=== PATIENT | male | born 1960 | race African-American/Black ===

== ENCOUNTER → 2016-09-12 | Outpatient (CLI) | payer MEDICARE, OTHER ==
[2016-02-18 13:30] VITALS: BP 161/81
[2016-09-12 09:09] LABS: CHOLESTEROL/HDL RATIO 2.2
== END | disposition home or self-care (01) ==
LOC: LAB 08:33
PROVIDERS: ATTEND Psychiatry & Neurology Psychiatry
DX: Z79.899 Other long term (current) drug therapy (principal)
CPT/HCPCS: 36415; 80061; 82947

== ENCOUNTER 2017-02-27 09:06 | Emergency (ER) | payer MEDICARE, OTHER ==
[~2017-02-27] VITALS: Ht 185.4 cm; Wt 81.6 kg
[2017-02-27] MEDS ORDERED: SMZ/TMP 800/160MG TABLET. PO ONE (10:30)
[2017-02-27] MEDS ORDERED: MUPIROCIN 2 % TOPICAL CREAM 15GM TUBE. TP STA (10:30)
[2017-02-27] MEDS ORDERED: LIDOCAINE 1% PF 2 ML VIAL. INJ ONE (10:30)
[2017-02-27] MEDS ORDERED: cefTRIAXone IM 1 GM VIAL IM ONE (10:30)
[2017-02-27] MEDS ORDERED: DIPHTH,PERTUSS(ACELL),TET TOX 0.5 ML DISP.SYRIN. VAX IM ONE (10:30)
[2017-02-27 11:10] VITALS: BP 162/79
--- NOTE | 2017-02-27 11:37 | PHYS DOC ---
Past Medical History Past Medical History: Schizophrenia Past Surgical History: No Surgical History Alcohol Use: Heavy Additional Information: 3-4 beers daily Drug Use: None Adult General Chief Complaint Chief Complaint: ABSCESS HPI HPI Patient is a 56 year old male with history of schizophrenia who presents with abscesses on his buttocks for 1 month. Patient states some of them of opened up and drained. Patient denies any fever. Review of Systems Review of Systems Constitutional: Denies fever or chills [] Eyes: Denies change in visual acuity, redness, or eye pain [] HENT: Denies nasal congestion or sore throat [] Musculoskeletal: Denies back pain or joint pain [] Integument: abscesses on his buttocks for 1 month Neurologic: Denies headache, focal weakness or sensory changes [] Endocrine: Denies polyuria or polydipsia [] Current Medications Current Medications Current Medications Medications (Trade) Dose Ordered Sig/Bernie Start Time Stop Time Status Last Admin Dose Admin Ceftriaxone Sodium (Rocephin Im) 1 gm 1X ONCE 02/27/17 10:30 02/27/17 10:35 DC 02/27/17 10:54 1 GM Diphtheria/ Tetanus/Acell Pertussis (Boostrix) 0.5 ml ONCE ONCE 02/27/17 10:30 02/27/17 10:35 DC 02/27/17 11:03 0.5 ML Lidocaine HCl (Xylocaine-Mpf 1% Vial) 2 ml 1X ONCE 02/27/17 10:30 02/27/17 10:35 DC 02/27/17 10:55 2 ML Mupirocin (Bactroban) 1 mann 1X STAT 02/27/17 10:30 02/27/17 10:35 DC 02/27/17 11:07 1 MANN Trimethoprim/ Sulfamethoxazole (Bactrim Ds) 1 tab 1X ONCE 02/27/17 10:30 02/27/17 10:35 DC 02/27/17 11:08 1 TAB Allergies Allergies Allergies Coded Allergies Type Severity Reaction Last Updated Verified No Known Allergies Allergy Unknown 02/18/16 Yes Physical Exam Physical Exam Constitutional: Well developed, well nourished, no acute distress, non-toxic appearance. [] HENT: Normocephalic, atraumatic, bilateral external ears normal, oropharynx moist, no oral exudates, nose normal. [] Skin: left buttock with two open abscesses with no drainage. Both abscess have mild cellulitis and are warm to touch and very TTP. Back: No tenderness, no CVA tenderness. [] Extremities: No tenderness, no cyanosis, no clubbing, ROM intact, no edema. [] Neurologic: Alert and oriented X 3, normal motor function, normal sensory function, no focal deficits noted. [] Psychologic: Affect normal, judgement normal, mood normal. [] Current Patient Data Vital Signs Vital Signs Date Time Temp Pulse Resp B/P (MAP) Pulse Ox O2 Delivery O2 Flow Rate FiO2 02/27/17 11:10 84 16 162/79 (106) 98 Room Air 02/27/17 09:22 98.1 98.1 EKG EKG [] Radiology/Procedures Radiology/Procedures [] Course & Med Decision Making Course & Med Decision Making Pertinent Labs and Imaging studies reviewed. (See chart for details) Patient is in the ED with abscesses on his left buttocks for 1 month that are open and draining. Patient was given Rocephin injection, first dose of Bactrim and discharged with Bactrim for 10 days. Patient was also given Bactroban cream in the ED. Prescription for his antibiotics was called into his local pharmacy. Patient is to follow-up with his own PCP in 1-2 weeks. Provided return precautions and discharged in stable condition. Dragon Disclaimer Dragon Disclaimer This electronic medical record was generated, in whole or in part, using a voice recognition dictation system. Departure Departure Impression: Primary Impression: Abscess of cellulitis of buttock Disposition: 01 HOME, SELF-CARE Condition: STABLE Referrals: ANDREW AMADOR MD (PCP) Follow-up with the primary care doctor in 1-2 weeks Patient Instructions: Abscess, Cellulitis Additional Instructions: You were discharged home with antibiotics for the abscess on your buttocks. Take the antibiotics as prescribed ensure you complete to the oral antibiotics. Use the Bactroban cream twice a day on her buttocks. Keep the affected area clean and dry. JHON ALEXIS APRN Feb 27, 2017 11:37
== END 2017-02-27 11:40 | disposition home or self-care (01) ==
LOC: ER 09:06
DX: L02.31 Cutaneous abscess of buttock (principal); L03.317 Cellulitis of buttock; F20.9 Schizophrenia, unspecified; F10.10 Alcohol abuse, uncomplicated; Y90.9 Presence of alcohol in blood, level not specified
CPT/HCPCS: 90471; 90715; 96372; 99284; J0696

== ENCOUNTER → 2017-12-02 | Day surgery (SDC) | payer MEDICARE, OTHER ==
[~2017-12-02] MED LIST: DEXAMETHASONE SOD PHOS 20 MG/5 ML VIAL.; HYDROmorphone 2 MG/ML VIAL IV; IV RINGERS,LACTATED 1000ML 1,000 ML IV; KETOROLAC 30 MG/ML INJ FOR OR. INJ; LIDOCAINE 1% PF 2 ML VIAL. ID; MIDAZOLAM HCL/PF 2 MG/2 ML VIAL.; MORPHINE SULFATE 4 MG/ML DISP.SYRIN. IV; ONDANSETRON PF 4 MG/2 ML VIAL.; ONDANSETRON PF 4 MG/2 ML VIAL. IV; PROCHLORPERAZINE 10 MG/2 ML VIAL. IV; PROPOFOL 20 ML IV; SEVOFLURANE 31 TO 60 MINUTES. IH; SUCCINYLCHOLINE 200 MG/10 ML VIAL.; ceFAZolin 2GM PREMIX 2 GM/50 ML BAG IV; ePHEDrine PF IN SALINE 50 MG/5 ML DISP.SYRIN IV; fentaNYL PF VIAL 100 MCG/2 ML VIAL; fentaNYL PF VIAL 100 MCG/2 ML VIAL IV
[2017-12-02] MEDS: BUPIVACAINE-EPI 0.25%-1:200000 50 ML VIAL. (10:12)
[2017-12-02] MEDS: HYDROcodone/APAP 5/325MG 1 TAB TABLET PO (13:01)
== END | disposition home or self-care (01) ==
LOC: SURG 09:00
DX: L05.91 Pilonidal cyst without abscess (principal); F17.210 Nicotine dependence, cigarettes, uncomplicated; Z79.899 Other long term (current) drug therapy; F20.9 Schizophrenia, unspecified; F41.9 Anxiety disorder, unspecified; F32.9 Major depressive disorder, single episode, unspecified; Z72.89 Other problems related to lifestyle
CPT/HCPCS: 11771; 88304; J0330; J0690; J1100; J1885; J2250; J2405; J2704; J3010

== ENCOUNTER → 2018-12-28 | Outpatient (CLI) | payer MEDICARE, OTHER ==
[2017-12-02 11:35] VITALS: BP 138/77
[~2018-12-28] MED LIST changes: -DEXAMETHASONE SOD PHOS 20 MG/5 ML VIAL.; +HYDR-3164 PO; -HYDROmorphone 2 MG/ML VIAL IV; -IV RINGERS,LACTATED 1000ML 1,000 ML IV; -KETOROLAC 30 MG/ML INJ FOR OR. INJ; -LIDOCAINE 1% PF 2 ML VIAL. ID; -MIDAZOLAM HCL/PF 2 MG/2 ML VIAL.; -MORPHINE SULFATE 4 MG/ML DISP.SYRIN. IV; -ONDANSETRON PF 4 MG/2 ML VIAL.; -ONDANSETRON PF 4 MG/2 ML VIAL. IV; -PROCHLORPERAZINE 10 MG/2 ML VIAL. IV; -PROPOFOL 20 ML IV; +RISP2TAB3 PO; -SEVOFLURANE 31 TO 60 MINUTES. IH; -SUCCINYLCHOLINE 200 MG/10 ML VIAL.; -ceFAZolin 2GM PREMIX 2 GM/50 ML BAG IV; -ePHEDrine PF IN SALINE 50 MG/5 ML DISP.SYRIN IV; -fentaNYL PF VIAL 100 MCG/2 ML VIAL; -fentaNYL PF VIAL 100 MCG/2 ML VIAL IV
[2018-12-28 14:34] LABS: BASO % 1 % (0-3); EOS # 0.1 x10^3/uL (0.0-0.7); EOS % 2 % (0-3); HEMATOCRIT 48.3 % (39.0-53.0); HEMOGLOBIN 16.5 g/dL (13.0-17.5); LYMPH # 1.1 x10^3/uL (1.0-4.8); LYMPH % 29 % (24-48); MEAN CORPUSCULAR HEMOGLOBIN 35 pg (25-35); MEAN CORPUSCULAR HGB CONC 34 g/dL (31-37); MEAN CORPUSCULAR VOLUME 104 fL (79-100); MONO # 0.5 x10^3/uL (0.0-1.1); MONO % 12 % (0-9); NEUT # 2.1 x10^3uL (1.8-7.7); NEUT % 56 % (31-73); PLATELET COUNT 112 x10^3/uL (140-400); RED BLOOD COUNT 4.65 x10^6/uL (4.30-5.70); RED CELL DISTRIBUTION WIDTH 12.7 % (11.5-14.5); WHITE BLOOD COUNT 3.9 x10^3/uL (4.0-11.0)
[2018-12-28 14:53] LABS: CHOLESTEROL/HDL RATIO 2.4
[2018-12-30 04:14] LABS: HEMOGLOBIN A1C 5.1 % (4.8-5.6)
== END | disposition home or self-care (01) ==
LOC: LAB 13:44
PROVIDERS: ATTEND Psychiatry & Neurology Psychiatry
DX: Z79.899 Other long term (current) drug therapy (principal)
CPT/HCPCS: 36415; 80061; 83036; 85025

== ENCOUNTER 2019-06-06 12:04 | Emergency (ER) | payer MEDICARE, OTHER ==
[~2019-06-06] VITALS: Ht 185.4 cm; Wt 81.6 kg
[2019-06-06 13:03] VITALS: BP 125/80
[2019-06-06] MEDS ORDERED: PRED50TA PO (13:22)
[2019-06-06] MEDS ORDERED: HYDR25TA PO (13:22)
[2019-06-06] MEDS ORDERED: PERM60CR12 TP (13:22)
--- NOTE | 2019-06-06 13:22 | PHYS DOC ---
Past Medical History Past Medical History: Schizophrenia Past Surgical History: Other Additional Past Surgical Histo: I&D of buttocks Alcohol Use: None Drug Use: None Adult General Chief Complaint Chief Complaint: SKIN RASH/ABSCESS HPI HPI Patient is a 59 year old [f__sex] who presents with [] Review of Systems Review of Systems Constitutional: Denies fever or chills [] Eyes: Denies change in visual acuity, redness, or eye pain [] HENT: Denies nasal congestion or sore throat [] Respiratory: Denies cough or shortness of breath [] Cardiovascular: No additional information not addressed in HPI [] GI: Denies abdominal pain, nausea, vomiting, bloody stools or diarrhea [] : Denies dysuria or hematuria [] Musculoskeletal: Denies back pain or joint pain [] Integument: Denies rash or skin lesions [] Neurologic: Denies headache, focal weakness or sensory changes [] Endocrine: Denies polyuria or polydipsia [] All other systems were reviewed and found to be within normal limits, except as documented in this note. Allergies Allergies Allergies Coded Allergies Type Severity Reaction Last Updated Verified No Known Allergies Allergy Unknown 12/02/17 Yes Physical Exam Physical Exam Constitutional: Well developed, well nourished, no acute distress, non-toxic appearance. [] HENT: Normocephalic, atraumatic, bilateral external ears normal, oropharynx moist, no oral exudates, nose normal. [] Eyes: PERRLA, EOMI, conjunctiva normal, no discharge. [] Neck: Normal range of motion, no tenderness, supple, no stridor. [] Cardiovascular:Heart rate regular rhythm, no murmur [] Lungs & Thorax: Bilateral breath sounds clear to auscultation [] Abdomen: Bowel sounds normal, soft, no tenderness, no masses, no pulsatile masses. [] Skin: Warm, dry, no erythema, no rash. [] Back: No tenderness, no CVA tenderness. [] Extremities: No tenderness, no cyanosis, no clubbing, ROM intact, no edema. [] Neurologic: Alert and oriented X 3, normal motor function, normal sensory function, no focal deficits noted. [] Psychologic: Affect normal, judgement normal, mood normal. [] Current Patient Data Vital Signs Vital Signs Date Time Temp Pulse Resp B/P (MAP) Pulse Ox O2 Delivery O2 Flow Rate FiO2 06/06/19 13:03 98.3 70 16 125/80 (95) 98 Room Air 98.3 EKG EKG [] Radiology/Procedures Radiology/Procedures [] Course & Med Decision Making Course & Med Decision Making Pertinent Labs and Imaging studies reviewed. (See chart for details) [] Dragon Disclaimer Dragon Disclaimer This electronic medical record was generated, in whole or in part, using a voice recognition dictation system. Departure Departure Impression: Primary Impression: Crusted scabies Additional Impression: Itching Disposition: 01 HOME, SELF-CARE Condition: STABLE Referrals: Tim AMADOR MD (PCP) Patient Instructions: Scabies Additional Instructions: Fill the prescriptions and take them as directed. Make sure to wash all of your bedding and clothing in hot water. Vacuum your home thoroughly. Follow-up with Dr. Amador in the next 1-2 days. Return to the emergency room if her symptoms worsen. Scripts Prednisone (PREDNISONE) 50 Mg Tablet 1 TAB PO DAILY for 4 Days, #4 TAB 0 Refills begin takjohnny martinez 06/07/19, first dose given in ER Prov: NITA SESAY APRN 06/06/19 Hydroxyzine Hcl (HYDROXYZINE HCL) 25 Mg Tablet 25 MG PO QID PRN for ITCHING for 10 Days, #40 TAB 0 Refills Prov: NITA SESAY APRN 06/06/19 Permethrin (PERMETHRIN) 60 Gm Cream..g. 1 DMITRY TP ONCE, #60 GM 1 Refill Apply the medication from head to toe leave on for 8-10 hours then rinse off. May repeat in one week if symptoms persist. Prov: INTA SESAY APRN 06/06/19 Problem Qualifiers NITA SESAY APRN Jun 06, 2019 13:22
[2019-06-06] MEDS ORDERED: predniSONE 10 MG TABLET PO ONE (13:45)
== END 2019-06-06 13:38 | disposition home or self-care (01) ==
LOC: ER 12:04
DX: B86 Scabies (principal); L29.8 Other pruritus; F20.9 Schizophrenia, unspecified
CPT/HCPCS: 99283; J7512

== ENCOUNTER → 2020-06-28 | Outpatient (CLI) | payer MEDICARE, OTHER ==
[~2020-06-28] MED LIST changes: +HYDR25TA PO; +PERM60CR12 TP; +PRED50TA PO; -RISP2TAB3 PO; +RISP2TAB78 PO
[2020-06-28 11:41] LABS: BASO % 1 % (0-3); EOS # 0.3 x10^3/uL (0.0-0.7); EOS % 9 % (0-3); HEMATOCRIT 45.1 % (39.0-53.0); HEMOGLOBIN 15.6 g/dL (13.0-17.5); LYMPH # 0.8 x10^3/uL (1.0-4.8); LYMPH % 25 % (24-48); MEAN CORPUSCULAR HEMOGLOBIN 37 pg (25-35); MEAN CORPUSCULAR HGB CONC 35 g/dL (31-37); MEAN CORPUSCULAR VOLUME 106 fL (79-100); MONO # 0.5 x10^3/uL (0.0-1.1); MONO % 15 % (0-9); NEUT # 1.5 x10^3/uL (1.8-7.7); NEUT % 50 % (31-73); PLATELET COUNT 125 x10^3/uL (140-400); RED BLOOD COUNT 4.24 x10^6/uL (4.30-5.70); RED CELL DISTRIBUTION WIDTH 13.1 % (11.5-14.5); WHITE BLOOD COUNT 3.1 x10^3/uL (4.0-11.0)
[2020-06-28 12:07] LABS: ALBUMIN 3.7 g/dL (3.4-5.0); CALCIUM 8.6 mg/dL (8.5-10.1); CREATININE 1.1 mg/dL (0.7-1.3); GFR 82.9; TOTAL BILIRUBIN 0.5 mg/dL (0.2-1.0); TOTAL PROTEIN 7.4 g/dL (6.4-8.2)
[2020-06-28 12:15] LABS: CHOLESTEROL/HDL RATIO 2.7
[2020-06-29 03:09] LABS: HEMOGLOBIN A1C 5.2 % (4.8-5.6)
== END ==
LOC: LAB 10:48
PROVIDERS: ATTEND Nurse Practitioner Psychiatric/Mental Health
DX: F20.9 Schizophrenia, unspecified (principal); Z79.899 Other long term (current) drug therapy
CPT/HCPCS: 36415; 80053; 80061; 83036; 84443; 85025